=== PATIENT | female | born 1980 | race Caucasian/White ===

== ENCOUNTER → 2020-10-25 | Outpatient (CLI) | payer OTHER ==
[~2020-10-25] VITALS: Ht 160 cm; Wt 83.9 kg
[~2020-10-25] MED LIST: ALL DAY ALLERGY10 M2 PO; AMLODIPINE BESY10 MG PO; AZELASTINE137 MCG/0.; KLONOPIN0.5 MG PO; LIPITOR40 MG PO; LISINOPRIL-HCT1 EAC1 PO; LOPID TAB 600600 MG PO; MONTELUKAST SOD10 MG PO; OMEPRAZOLE20 MG PO; PHENERGAN 25 MG25 M1 PO; PLAQUENIL200 MG PO; TENORMIN 50 MG50 MG PO; TYLENOL WITH C1 EACH PO
== END ==
LOC: OPSV 09:43
DX: L93.0 Discoid lupus erythematosus (principal); Z88.1 Allergy status to other antibiotic agents; Z88.0 Allergy status to penicillin; Z88.2 Allergy status to sulfonamides; Z88.8 Allergy status to other drugs, medicaments and biological substances; L93.2 Other local lupus erythematosus
CPT/HCPCS: 96365; 96375; J0490; J1720; J7050

== ENCOUNTER → 2020-11-08 | Outpatient (CLI) | payer OTHER ==
[~2020-11-08] VITALS: Ht 160 cm; Wt 83.9 kg
== END ==
LOC: OPSV 10-29 10:00
DX: L93.0 Discoid lupus erythematosus (principal); L93.2 Other local lupus erythematosus
CPT/HCPCS: 96365; 96374; J0490; J1720; J7050

== ENCOUNTER → 2020-12-06 | Outpatient (CLI) | payer OTHER ==
[~2020-12-06] VITALS: Ht 160 cm; Wt 83.9 kg
== END ==
LOC: OPSV 10:00
DX: L93.2 Other local lupus erythematosus (principal); L93.0 Discoid lupus erythematosus
CPT/HCPCS: 96365; 96374; J0490; J1720; J7050

== ENCOUNTER → 2021-01-03 | Outpatient (CLI) | payer OTHER ==
[~2021-01-03] VITALS: Ht 160 cm; Wt 83.9 kg
== END ==
LOC: OPSV 10:11
DX: L93.2 Other local lupus erythematosus (principal); L93.0 Discoid lupus erythematosus
CPT/HCPCS: 96365; 96375; J0490; J1720; J7050

== ENCOUNTER → 2021-01-31 | Outpatient (CLI) | payer OTHER ==
[~2021-01-31] VITALS: Ht 160 cm; Wt 83.9 kg
== END ==
LOC: OPSV 10:00
DX: L93.2 Other local lupus erythematosus (principal); L93.0 Discoid lupus erythematosus
CPT/HCPCS: 96365; 96375; J0490; J1720; J7050

== ENCOUNTER → 2021-02-28 | Outpatient (CLI) | payer OTHER ==
[~2021-02-28] VITALS: Ht 157.5 cm; Wt 90.0 kg
== END ==
LOC: OPSV 10:00
DX: L93.2 Other local lupus erythematosus (principal); L93.0 Discoid lupus erythematosus
CPT/HCPCS: 96365; 96375; J0490; J1720; J7050

== ENCOUNTER → 2021-04-28 | Outpatient (CLI) | payer OTHER ==
[~2021-04-28] VITALS: Ht 160 cm; Wt 83.9 kg
[2021-04-28 16:34] LABS: HEMOGLOBIN 12.7 gm/dl (12.3-15.3); RED BLOOD COUNT 3.95 M/UL (4.00-5.10); WHITE BLOOD COUNT 9.4 K/UL (4.5-11.0)
[2021-04-28 16:56] LABS: BUN/CREATININE RATIO 11 (0-10)
[2021-04-29 08:14] LABS: COMPLEMENT C3, SERUM 140 mg/dL (82-167); COMPLEMENT C4, SERUM 31 mg/dL (12-38)
[2021-04-29 09:14] LABS: HBSAG SCREEN Negative (Negative); HEP B CORE AB, TOT Negative (Negative)
[2021-04-29 11:14] LABS: HCV AB <0.1 (0.0-0.9)
[2021-04-29 16:14] LABS: DSDNA CRITHIDIA LUCILIAE IFA Negative (Negative)
[2021-05-05 16:12] LABS: QUANTIFERON MITOGEN VALUE >10.00 IU/mL (.); QUANTIFERON NIL VALUE 0.01 IU/mL (.); QUANTIFERON TB1 AG VALUE 0.01 IU/mL (.); QUANTIFERON-TB GOLD PLUS Negative (Negative)
== END ==
LOC: OPSV 10:00
PROVIDERS: Internal Medicine
DX: L93.0 Discoid lupus erythematosus (principal); R80.9 Proteinuria, unspecified; Z79.899 Other long term (current) drug therapy
CPT/HCPCS: 36415; 80053; 81001; 82570; 84156; 85025; 85652; 86140; 86160; 86162; 86255; 86704; 86803; 87340; 96365; 96375; J0490; J1720; J7030

== ENCOUNTER → 2021-05-26 | Outpatient (CLI) | payer OTHER ==
[~2021-05-26] VITALS: Ht 160 cm; Wt 83.9 kg
== END ==
LOC: OPSV 09:21
DX: L93.2 Other local lupus erythematosus (principal)
CPT/HCPCS: 96365; 96375; J0490; J1720; J7030

== ENCOUNTER → 2021-06-20 | Outpatient (CLI) | payer OTHER | LOC: HEART CORB 13:12 | DX: R00.2 Palpitations (principal) | CPT/HCPCS: 93306 ==

== ENCOUNTER → 2021-07-12 | Outpatient (CLI) | payer OTHER ==
[~2021-07-12] VITALS: Ht 160 cm; Wt 83.9 kg
== END ==
LOC: OPSV 10:35
DX: L93.2 Other local lupus erythematosus (principal)
CPT/HCPCS: 96365; 96375; J0490; J1720; J7030

== ENCOUNTER → 2021-08-16 | Outpatient (CLI) | payer OTHER ==
[~2021-08-16] VITALS: Ht 160 cm; Wt 83.9 kg
== END ==
LOC: OPSV 08-12 10:00
DX: L93.2 Other local lupus erythematosus (principal)
CPT/HCPCS: 96365; 96375; J0490; J1720; J7030

== ENCOUNTER → 2021-09-13 | Outpatient (CLI) | payer OTHER ==
[~2021-09-13] VITALS: Ht 160 cm; Wt 83.9 kg
== END ==
LOC: OPSV 13:00
DX: L93.2 Other local lupus erythematosus (principal)
CPT/HCPCS: 96365; 96375; J0490; J1720; J7030

== ENCOUNTER → 2021-10-11 | Outpatient (CLI) | payer OTHER ==
[~2021-10-11] VITALS: Ht 160 cm; Wt 83.9 kg
== END ==
LOC: OPSV 08:00
DX: L93.2 Other local lupus erythematosus (principal)
CPT/HCPCS: 96365; 96375; J0490; J1720; J7030

== ENCOUNTER → 2021-11-22 | Outpatient (CLI) | payer OTHER ==
[~2021-11-22] VITALS: Ht 160 cm; Wt 83.9 kg
== END ==
LOC: OPSV 08:00
DX: L93.2 Other local lupus erythematosus (principal); Z88.1 Allergy status to other antibiotic agents; Z88.8 Allergy status to other drugs, medicaments and biological substances; Z88.2 Allergy status to sulfonamides
CPT/HCPCS: 96365; 96375; J0490; J1720; J7030

== ENCOUNTER → 2021-12-20 | Outpatient (CLI) | payer OTHER ==
[~2021-12-20] VITALS: Ht 160 cm; Wt 83.9 kg
== END ==
LOC: OPSV 10:00
DX: L93.2 Other local lupus erythematosus (principal)
CPT/HCPCS: 96365; 96375; J0490; J1720; J7030

== ENCOUNTER → 2022-01-17 | Outpatient (CLI) | payer OTHER ==
[~2022-01-17] VITALS: Ht 160 cm; Wt 83.9 kg
== END ==
LOC: OPSV 10:00
DX: L93.2 Other local lupus erythematosus (principal); Z88.1 Allergy status to other antibiotic agents; Z88.8 Allergy status to other drugs, medicaments and biological substances; Z88.0 Allergy status to penicillin; Z88.2 Allergy status to sulfonamides
CPT/HCPCS: 96365; 96375; J0490; J1720; J7030

== ENCOUNTER → 2022-03-23 | Outpatient (CLI) | payer OTHER | LOC: OPSV 09:57 | DX: L93.2 Other local lupus erythematosus (principal) | CPT/HCPCS: 96365; 96375; J0490; J1720; J7030 ==